=== PATIENT | female | born 1980 | race African-American/Black ===

== ENCOUNTER 2017-01-23 17:01 | Emergency (ER) | payer OTHER ==
[~2017-01-23] VITALS: Ht 167.6 cm; Wt 86.0 kg
[2017-01-23] MEDS ORDERED: BUPR75 PO (17:45)
[2017-01-23] MEDS ORDERED: SERT50TA12 PO (17:45)
[2017-01-23] MEDS ORDERED: ARIP2 PO (17:45)
[2017-01-23 20:15] VITALS: BP 121/79
== END 2017-01-23 20:16 | disposition home or self-care (01) ==
LOC: EMS 17:04
DX: K64.4 Residual hemorrhoidal skin tags (principal); K59.00 Constipation, unspecified; K62.89 Other specified diseases of anus and rectum; F32.9 Major depressive disorder, single episode, unspecified; F17.210 Nicotine dependence, cigarettes, uncomplicated
CPT/HCPCS: 99283

== ENCOUNTER 2017-02-21 13:08 | Emergency (ER) | payer OTHER ==
[~2017-02-21] VITALS: Ht 167.6 cm; Wt 90.0 kg
[~2017-02-21 13:08] MED LIST: ARIP2 PO; BUPR75 PO; SERT50TA12 PO
[2017-02-21] MEDS ORDERED: SODIUM CHLORIDE 0.9% 1,000 ML IV ONE (13:45)
[2017-02-21 14:23] LABS: ORIG DRAW (USER) PTCARESTAF
[2017-02-21 14:26] LABS: ANION GAP 12 mmol/L (8-16); CALCIUM, TOTAL 8.7 mg/dL (8.8-10.5); CARBON DIOXIDE 25 mmol/L (22-29); CHLORIDE 104 mmol/L (98-107); CREATININE 0.78 mg/dL (0.60-1.30); GLOMERULAR FILTR. RATE CALC > 60 mL/min (>60); POTASSIUM 4.3 mmol/L (3.5-5.1); SODIUM SERUM 141 mmol/L (136-145); UREA NITROGEN, BLOOD 8 mg/dL (7-18)
[2017-02-21 14:53] VITALS: BP 108/60
[2017-02-21 14:56] LABS: BASOPHILS # (AUTO) 0.03 K/uL (0.00-0.20); BASOPHILS % (AUTO) 0.6 % (0.0-2.0); EOSINOPHILS # (AUTO) 0.22 K/uL (0.00-0.70); EOSINOPHILS % (AUTO) 4.76 % (1.0-6.0); HEMATOCRIT 27.4 % (36-46); HEMOGLOBIN 8.8 g/dL (12.0-16.0); LYMPHOCYTES # (AUTO) 1.1 K/uL (1.0-4.8); LYMPHOCYTES % (AUTO) 24.7 % (22.0-44.0); MEAN CORPUSCULAR HEMOGLOBIN 23.2 pg (26.0-34.0); MEAN CORPUSCULAR HGB CONC 32.3 G/dL (31.0-37.0); MEAN CORPUSCULAR VOLUME 72 fL (80-100); MONOCYTES # (AUTO) 0.4 K/uL (0.1-1.0); MONOCYTES % (AUTO) 8.7 % (2.0-9.0); NEUTROPHILS # (AUTO) 2.8 K/uL (1.8-7.7); NEUTROPHILS % (AUTO) 61.2 % (40.0-70.0); PLATELET COUNT (AUTO) 253 K/uL (150-450); RED BLOOD CELL COUNT(AUTO) 3.81 MIL/uL (4.00-5.20); RED CELL DISTRIBUTION WIDTH 21.1 % (11.5-14.5); WHITE BLOOD COUNT (AUTO) 4.6 K/uL (4.5-11.0)
[2017-02-21 15:39] LABS: RBC MORPHOLOGY COMMENT ABNORMAL RBC MORPH
== END 2017-02-21 15:35 | disposition home or self-care (01) ==
LOC: EMS 13:10
DX: D64.9 Anemia, unspecified (principal); R42 Dizziness and giddiness; F17.210 Nicotine dependence, cigarettes, uncomplicated
CPT/HCPCS: 81025; 93005; 96360; 99285